=== PATIENT | female | born 2000 | race Caucasian/White ===

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

== ENCOUNTER 2025-01-02 20:17 | Emergency (ER) | payer OTHER, SELFPAY ==
[2025-01-02] MEDS ORDERED: KETOROLAC 30 MG/ML INJ ONE (23:19)
[2025-01-02] MEDS ORDERED: ONDANSETRON 4 MG/2 ML VIAL ONE (23:19)
[2025-01-02] MEDS ORDERED: METOCLOPRAMIDE 10 MG/2mL INJ ONE (23:19)
[2025-01-02] MEDS ORDERED: DIPHENOX/ATROP SULF 1 TAB PO ONE (23:20)
[2025-01-02] MEDS ORDERED: NA CHLORIDE 0.9% 2,000 ML ONE (23:20)
[2025-01-02] MEDS ORDERED: FAMOTIDINE 20 MG/2 ML VIAL IV ONE (23:20)
[2025-01-02 23:34] LABS: MCHC 34.7 g/dL (32.0-36.0); Nucleated RBC Absolute Count 0.0 (0-0); Nucleated Red Blood Cells % 0.0 % (0-0); RBC Red Blood Cell Count 4.23 M/uL (3.86-4.86)
[2025-01-02 23:45] LABS: ALT/SGPT 34.0 U/L (13-56); AST/SGOT 15.0 U/L (15-37); Albumin 4.2 g/dL (3.4-5.0); Albumin/Globulin Ratio 0.9 (1.1-1.8); Alkaline Phosphatase 54.0 U/L (45-117); Anion Gap 11.6 mEq/L (5.0-15.0); BUN Blood Urea Nitrogen 11.0 mg/dL (7-18); Globulin 4.5 g/dL (2.3-3.5); Glucose Level 112.0 mg/dL (74-106); Potassium 3.6 mEq/L (3.5-5.1)
[2025-01-03 00:06] LABS: Influenza A Ag Negative; Influenza B Ag Negative; SARS-CoV-2 Antigen Rapid Res Negative (Negative)
[2025-01-03 00:08] LABS: Absolute Lymphocytes (CBC) 1.3 K/uL (0.7-4.9); Hematocrit 38.2 % (36.0-45.0); Hemoglobin 13.2 g/dL (12.0-15.0); MCH 31.3 pg (27.0-35.0); MCV 90.2 fL (80-100); MPV 8.9 fL (7.6-11.3); White Blood Count 10.90 thou/uL (4.3-10.9)
--- NOTE | 2025-01-03 00:57 | EDPHYS ---
Physician Documentation [facility] Name: Chanelle Pappas Hopper Age: 24 yrs Sex: Female : 2000 Arrival Date: 01/02/2025 Time: 20:17 Bed 3 Private MD: ED Physician Rohan Sutherland HPI: 01/03 00:52 This 24 yrs old Female presents to ER via Wheelchair with complaints of sp4 Chills, Nausea/Vomiting. 05:49 24-year-old female presents with acute onset of vomiting diarrhea fever and chills. sp4 Patient reports she is feeling unwell. History of hypertension in the past, history of cholecystectomy.. 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 - Infectious Disease History:: Denies. - Social history:: Smoking status: Reported history of juuling and/or vaping. Patient uses alcohol, occasionally. Patient/guardian denies using street drugs, IV drugs. - Family history:: not pertinent. ROS: 01/03 05:49 Constitutional: Positive subjective fever, positive chills, positive nausea, positive sp4 vomiting, positive diarrhea, positive feeling unwell All other systems are negative, Exam: 05:49 Constitutional: This is a well developed, well nourished patient who is awake, alert, sp4 and in no acute distress. Head/Face: Normocephalic, atraumatic. Eyes: Pupils equal round and reactive to light, extra-ocular motions intact. Lids and lashes normal. Conjunctiva and sclera are not injected. Cornea within normal limits. Periorbital areas with no swelling, redness, or edema. ENT: Nares patent. No nasal discharge, no septal abnormalities noted. Tympanic membranes are normal and external auditory canals are clear. Oropharynx with no redness, swelling, or masses, exudates, or evidence of obstruction, uvula midline. Mucous membranes moist. Neck: Trachea midline, no thyromegaly or masses palpated, and no cervical lymphadenopathy. Supple, full range of motion without nuchal rigidity, or vertebral point tenderness. Chest/axilla: Normal chest wall appearance and motion. Nontender with no deformity. No lesions are appreciated. Cardiovascular: Regular rate and rhythm with a normal S1 and S2. No gallops, murmurs, or rubs. No pulse deficits. Respiratory: Lungs have equal breath sounds bilaterally, clear to auscultation and percussion. No rales, rhonchi or wheezes noted. No increased work of breathing, no retractions or nasal flaring. Abdomen/GI: Soft, with normal bowel sounds. No distension or tympany. No guarding or rebound. No evidence of tenderness throughout. Back: No spinal tenderness. No costovertebral tenderness. Skin: Warm, dry with normal turgor. Normal color with no rashes, no lesions, and no evidence of cellulitis. MS/ Extremity: Pulses equal, no cyanosis. Neurovascular intact. Full, normal range of motion. Neuro: Awake and alert, GCS 15, oriented to person, place, time, and situation. Cranial nerves II-XII grossly intact. Motor strength 5/5 in all extremities. Sensory grossly intact. Psych: Awake, alert, with orientation to person, place and time. Behavior, mood, and affect are within normal limits Vital Signs: 01/02 20:50 BP 151 / 115; Pulse 93; Resp 20; Temp 98.3; Pulse Ox 100% ; Weight 111.13 kg; Height 5 bp ft. 9 in. ; Pain 8/10; 23:30 BP 125 / 78; Pulse 65; Resp 18; Pulse Ox 100% ; cp4 01/03 00:33 BP 121 / 64; Pulse 59; Resp 18; Pulse Ox 100% ; cp4 01:41 BP 123 / 67; Pulse 64; Resp 18; Pulse Ox 100% ; cp4 01/02 20:50 Body Mass Index 36.18 (111.13 kg, 175.26 cm) bp 01/02 20:50 Pain Scale: Adult bp Ramey Coma Score: 05:49 Eye Response: spontaneous(4). Verbal Response: oriented(5). Motor Response: obeys sp4 commands(6). Total: 15. MDM: 01/02 20:56 Medical Screening Exam initiated sp4 01/03 05:50 Differential diagnosis: Nonspecific abd pain, gastritis, pancreatitis, viral sp4 gastroenteritis, gastroenteritis. Data reviewed: vital signs, nurses notes, old medical records, lab test result(s). Consideration of Admission/Observation Escalation of care including admission/observation considered. ED course: Patient much improved after her medication administration. Patient stable for discharge home with bedrest, clear liquid diet, and symptomatic medications.. 01/02 20:23 Order name: CBC with Diff; Complete Time: 00:22 sp4 01/02 20:23 Order name: CMP; Complete Time: 00:22 sp4 01/02 20:23 Order name: Test, Urine; Complete Time: 00:22 sp4 01/02 20:23 Order name: COVID-19 Ag + Flu A+B Ag; Complete Time: 00:22 sp4 01/02 20:23 Order name: IV Saline Lock; Complete Time: 23:16 sp4 01/02 20:23 Order name: Labs collected and sent; Complete Time: 23:16 sp4 Administered Medications: 01/02 23:45 Drug: Famotidine IVP 20 mg IVP once; dilute with 10 mL 0.9% NaCl; give over 2 minutes 4 Route: IVP; Site: left antecubital; 01/03 01:42 Follow up: Response: No adverse reaction cp4 01/02 23:45 Drug: metoCLOPramide IVP 10 mg IVP once; over 1 to 2 minutes Route: IVP; Site: left [facility] antecubital; 01/03 01:42 Follow up: Response: No adverse reaction; Nausea is decreased cp4 01/02 23:45 Drug: NS 0.9% IV 1000 ml IV at 1000 ml once; to be given as a bolus over 60 minutes cp4 Route: IV; Rate: 1000 ml; Site: left antecubital; 01/03 01:42 Follow up: IV Status: Completed infusion cp4 01/02 23:45 Drug: Diphenoxylate-Atropine PO 2 tabs PO once Route: PO; cp4 01/03 01:41 Follow up: Response: No adverse reaction cp4 01/02 23:45 Drug: Ketorolac IVP 30 mg IVP once Route: IVP; Site: left antecubital; 4 01/03 01:41 Follow up: Response: No adverse reaction; Pain is decreased cp4 01/02 23:46 Drug: Ondansetron IVP 8 mg IVP once; over 2 minutes Route: IVP; Site: left antecubital; cp4 01/03 01:42 Follow up: Response: No adverse reaction cp4 01/02 23:46 Drug: NS 0.9% IV 1000 ml IV at 1 bolus Per protocol; to be given as a bolus over 60 cp4 minutes Route: IV; Rate: 1 bolus; Site: left antecubital; 01/03 01:42 Follow up: IV Status: Completed infusion cp4 Disposition Summary: 01/03/25 00:57 Discharge Ordered Notes: Location: Home sp4 Problem: new sp4 Symptoms: have improved sp4 Condition: Stable sp4 Diagnosis - Acute viral gastroenteritis, acute nausea vomiting and diarrhea sp4 Followup: sp4 - With: Private Physician - When: As needed - Reason: Recheck today's complaints Discharge Instructions: - Discharge Summary Sheet sp4 - Viral Gastroenteritis, Adult, [id number] sp4 Forms: - Patient Portal Instructions sp4 Prescriptions: - Lomotil 2.5-0.025 mg Oral tablet - take 1 tablet ORAL route every 6 hours as needed for diarrhea; 30 tablet; sp4 Refills: 0, Product Selection Permitted - meloxicam 15 mg Oral tablet - take 1 tablet ORAL route daily as needed for pain or fever; 30 tablet; sp4 Refills: 0, Product Selection Permitted - ondansetron 8 mg Oral Tablet,disintegrating - take 1 tablet ORAL route every 8 hours; 30 tablet; Refills: 0, Product sp4 Selection Permitted Signatures: Dispatcher [employer] Diogo Tomlin, RN RN Rohan Haq MD MD 4 Lilly Hoffman 4 Corrections: (The following items were deleted from the chart) 01/02 20:23 20:23 CBC+H.LAB.BRZ ordered. EDMS EDMS 20:23 20:23 COMPREHENSIVE METABOLIC PANEL+C.LAB.BRZ ordered. EDMS EDMS 20:23 20:23 Test, Urine+UC.LAB.BRZ ordered. EDMS EDMS 20:24 20:24 COVID-19 Ag + Flu A+B Ag+I.LAB.BRZ ordered. EDMS EDMS 01/03 00:14 01/02 21:04 TEST, SERUM+SC.LAB.BRZ ordered. EDMS EDMS
--- NOTE | 2025-01-03 00:57 | ER ---
Nurse's Notes [facility] Name: Chanelle Pappas Hopper Age: 24 yrs Sex: Female : 2000 Arrival Date: 01/02/2025 Time: 20:17 Bed 3 Private MD: Diagnosis: Acute viral gastroenteritis, acute nausea vomiting and diarrhea Presentation: 01/02 20:50 Chief complaint: Patient states: WOKE UP TODAY FEELING SICK. N/V. VOMITED X15. CHILLS. bp Coronavirus screen: At this time, the client does not indicate any symptoms associated with coronavirus-19. Ebola Screen: No symptoms or risks identified at this time. Initial Sepsis Screen: Does the patient meet any 2 criteria? No. Patient's initial sepsis screen is negative. Does the patient have a suspected source of infection? No. Patient's initial sepsis screen is negative. Risk Assessment: Do you want to hurt yourself or someone else? Patient reports no desire to harm self or others. Onset of symptoms was January 02, 2025. 20:50 Method Of Arrival: Wheelchair bp 20:50 Acuity: ROBERT 3 bp Triage Assessment: 20:56 General: Appears in no apparent distress. uncomfortable, Behavior is calm, cooperative, bp appropriate for age. Pain: Complains of pain in epigastric area. GI: Reports epigastric pain, nausea, vomiting. 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 - Infectious Disease History:: Denies. - Social history:: Smoking status: Reported history of juuling and/or vaping. Patient uses alcohol, occasionally. Patient/guardian denies using street drugs, IV drugs. - Family history:: not pertinent. Screenin:[address] [facility] ED Fall Risk Assessment (Adult) History of falling in the last 3 months, cp4 including since admission No falls in past 3 months (0 pts) Confusion or Disorientation No (0 pts) Intoxicated or Sedated No (0 pts) Impaired Gait No (0 pts) Mobility Assist Device Used No (0 pt) Altered Elimination No (0 pt) Score/Fall Risk Level 0 - 2 = Low Risk Oriented to surroundings, Maintained a safe environment, Assessed \T\ reinforced patient's understanding of fall precautions, Hourly rounding (assess needs \T\ fall precautionary measures) done. Abuse screen: Denies threats or abuse. Denies injuries from another. Nutritional screening: No deficits noted. Tuberculosis screening: No symptoms or risk factors identified. Never had TB. Assessment: 23:52 General: Appears in no apparent distress. uncomfortable, Behavior is calm, cooperative, cp4 appropriate for age. Pain: Denies pain. Neuro: Level of Consciousness is awake, alert, obeys commands, Oriented to person, place, time, situation. Cardiovascular: Patient's skin is warm and dry. Respiratory: Airway is patent Respiratory effort is even, unlabored. GI: Abdomen is round non-distended, Bowel sounds present X 4 quads. Abd is soft and non tender X 4 quads. Reports diarrhea, nausea, vomiting. : No signs and/or symptoms were reported regarding the genitourinary system. EENT: No signs and/or symptoms were reported regarding the EENT system. Derm: No signs and/or symptoms reported regarding the dermatologic system. Musculoskeletal: No signs and/or symptoms reported regarding the musculoskeletal system. Vital Signs: 20:50 BP 151 / 115; Pulse 93; Resp 20; Temp 98.3; Pulse Ox 100% ; Weight 111.13 kg; Height 5 bp ft. 9 in. ; Pain 8/10; 23:30 BP 125 / 78; Pulse 65; Resp 18; Pulse Ox 100% ; cp4 01/03 00:33 BP 121 / 64; Pulse 59; Resp 18; Pulse Ox 100% ; cp4 01:41 BP 123 / 67; Pulse 64; Resp 18; Pulse Ox 100% ; cp4 01/02 20:50 Body Mass Index 36.18 (111.13 kg, 175.26 cm) bp 01/02 20:50 Pain Scale: Adult bp Timblin Coma Score: 05:49 Eye Response: spontaneous(4). Verbal Response: oriented(5). Motor Response: obeys sp4 commands(6). Total: 15. ED Course: 01/02 20:20 Patient arrived in ED. im 20:23 Rohan Sutherland MD is Attending Physician. sp4 20:56 Triage completed. bp 20:56 Arm band placed on right wrist. bp 23:14 Lilly Hoffman is Primary Nurse. cp4 23:53 Bed in low position. Call light in reach. Side rails up X2. cp4 23:53 No provider procedures requiring assistance completed. Initial lab(s) drawn, by ED cp4 staff, sent to lab. Urine collected: clean catch specimen, clear, COVID swab sent to lab. Flu and/or RSV swab sent to lab. Inserted saline lock: 20 gauge in left antecubital area, using aseptic technique. Blood collected. Flushed with 10 mL NS. Administered Medications: 23:45 Drug: Famotidine IVP 20 mg IVP once; dilute with 10 mL 0.9% NaCl; give over 2 minutes cp4 Route: IVP; Site: left antecubital; 01/03 01:42 Follow up: Response: No adverse reaction 4 01/02 23:45 Drug: metoCLOPramide IVP 10 mg IVP once; over 1 to 2 minutes Route: IVP; Site: left 4 antecubital; 01/03 01:42 Follow up: Response: No adverse reaction; Nausea is decreased cp4 01/02 23:45 Drug: NS 0.9% IV 1000 ml IV at 1000 ml once; to be given as a bolus over 60 minutes cp4 Route: IV; Rate: 1000 ml; Site: left antecubital; 01/03 01:42 Follow up: IV Status: Completed infusion cp4 01/02 23:45 Drug: Diphenoxylate-Atropine PO 2 tabs PO once Route: PO; cp4 01/03 01:41 Follow up: Response: No adverse reaction 4 01/02 23:45 Drug: Ketorolac IVP 30 mg IVP once Route: IVP; Site: left antecubital; cp4 01/03 01:41 Follow up: Response: No adverse reaction; Pain is decreased 4 01/02 23:46 Drug: Ondansetron IVP 8 mg IVP once; over 2 minutes Route: IVP; Site: left antecubital; 4 01/03 01:42 Follow up: Response: No adverse reaction 4 01/02 23:46 Drug: NS 0.9% IV 1000 ml IV at 1 bolus Per protocol; to be given as a bolus over 60 cp4 minutes Route: IV; Rate: 1 bolus; Site: left antecubital; 01/03 01:42 Follow up: IV Status: Completed infusion cp4 Medication: 01/02 23:53 VIS not applicable for this client. cp4 Outcome: 01/03 00:57 Discharge ordered by . ar 01:43 Patient left the ED. cp4 Signatures: Diogo Woodward RN RN Rohan Haq MD MD sp4 Kati Madison Christina cp4
[2025-01-03 01:50] VITALS: TEMP 98.3; O2SAT 100
[2025-01-03 01:54] VITALS: BP 123/67
== END 2025-01-03 01:43 | disposition home or self-care (01) ==
LOC: ER 20:17
DX: A08.4 Viral intestinal infection, unspecified (principal); Z11.52 Encounter for screening for COVID-19
CPT/HCPCS: 36415; 80053; 81025; 85025; 87428; 96361; 96374; 96375; 99284; J1885; J2405; J2765; J7030